=== PATIENT | male | born 1965 | race Caucasian/White ===

== ENCOUNTER 2019-06-25 09:33 | Day surgery (SDC) | payer BC ==
[2019-06-25] MEDS ORDERED: PROPOFOL INJ 200 MG/20 ML VIAL IV ONE (13:32)
[2019-06-25] MEDS ORDERED: PROMETHAZINE HCL INJ 25 MG/1 ML VIAL IV PRN (13:43)
[2019-06-25] MEDS ORDERED: DIPHENHYDRAMINE HCL 50 MG/ML VIAL IV PRN (13:43)
[2019-06-25 15:13] VITALS: BP 124/74
--- NOTE | 2019-06-25 19:52 | Operative Report ---
Operative Report DATE OF SURGERY: 06/25/19 Operative Report: Risks, benefits and alternatives are discussed with the patient procedure performed in the OR under Propofol sedation procedure is completed to the cecum prep is good all segments are visualized no post procedure complications are noted immediately post procedure retroflexion is performed PREOPERATIVE DIAGNOSIS: rectal bleeding POSTOPERATIVE DIAGNOSIS: internal hemorrhoids. non specifric right colon infla mmation , biopsy is obtained OPERATION: colonoscopy with biopsy SURGEON: SHAISTA RICHMOND ANESTHESIA: LMAC TISSUE REMOVED OR ALTERED: as noted above COMPLICATIONS: none ESTIMATED BLOOD LOSS: none INTRAOPERATIVE FINDINGS: as noted above PROCEDURE: patient tolerated his procedure well no complications are noted patient is sent to recovery in good condition discharge date 06/25/19 discharge diet and activity is normal if any issues post procedure , call office or go to ED follow up on biopsy
== END 2019-06-25 15:05 | disposition home or self-care (01) ==
LOC: OROUT 09:33
PROVIDERS: ATTEND Internal Medicine Gastroenterology
DX: K62.5 Hemorrhage of anus and rectum (principal); F17.210 Nicotine dependence, cigarettes, uncomplicated; Z79.899 Other long term (current) drug therapy; K64.8 Other hemorrhoids; K52.9 Noninfective gastroenteritis and colitis, unspecified; R01.1 Cardiac murmur, unspecified
CPT/HCPCS: 45380; 88305 ×2; 00811; J2704; 811